=== PATIENT | male | born 2000 | race Caucasian/White ===

== ENCOUNTER → 2019-01-11 | Outpatient (CLI) | payer BC | LOC: COL.RAD 13:15 | DX: N45.1 Epididymitis (principal); Z90.79 Acquired absence of other genital organ(s) ==

== ENCOUNTER 2021-08-24 17:12 | Observation (INO) | payer BC ==
[~2021-08-24] VITALS: Ht 182.9 cm; Wt 92.2 kg
[2021-08-24 17:46] LABS: COLLECTION METHOD CLEAN CATCH
[2021-08-24 17:50] LABS: BASO % 0.3 % (0.0-2.0); EOS # 0.1 K/mm3 (0.0-0.7); EOS % 0.4 % (0-4.0); GRAN # 10.6 K/mm3 (1.4-6.5); GRAN % 77.7 % (42.2-75.2); HEMATOCRIT 45.1 % (42.0-52.0); HEMOGLOBIN 16.9 g/dl (13.5-18.0); MEAN CELL VOLUME 85 fl (80.0-100.0); MEAN CORPUSCULAR HEMOGLOBIN 32 pg (27.0-31.0); MEAN CORPUSCULAR HGB CONC 38 g/dl (33.0-37.0); MEAN PLATELET VOLUME 8.5 fl (7.4-10.4); MONO # 0.8 K/mm3 (0.1-0.6); MONO % 6.2 % (1.7-9.3); PLATELET COUNT 259 K/mm3 (130-400); RED BLOOD COUNT 5.28 M/mm3 (4.20-5.60); REDCELL DISTRIBUTION WIDTH-CV 11.8 % (11.5-14.5)
[2021-08-24 17:55] LABS: PH 8 (5-8); SQUAMOUS EPITHELIAL None Seen /hpf (0-10); URINE APPEARANCE Cloudy (CLEAR/HAZY); URINE BACTERIA None Seen (NONE SEEN); URINE BILIRUBIN Negative (NEGATIVE); URINE BLOOD Negative (NEGATIVE); URINE COLOR Yellow (YELLOW); URINE GLUCOSE Negative (NEGATIVE); URINE KETONE Negative (NEGATIVE); URINE LEUKOCYTE ESTERASE Negative (NEGATIVE); URINE NITRATE Negative (NEGATIVE); URINE PROTEIN(semi-quant) Negative (NEGATIVE); URINE RBC 0-2 /hpf (0-2); URINE UROBILINOGEN Negative (NEGATIVE)
[2021-08-24 18:08] LABS: ALBUMIN 4.6 gm/dL (3.5-5.0); BILIRUBIN,TOTAL 0.7 mg/dL (0.2-1.2); CREATININE, serum 1.44 mg/dL (0.72-1.25); POTASSIUM 3.9 mmol/L (3.5-4.5); TOTAL PROTEIN 8.2 gm/dL (6.2-8.1)
[2021-08-24] MEDS ORDERED: COMPLETE MULTI1 TAB PO (20:33)
[2021-08-24 20:52] VITALS: BP 155/84; PULSE 88; TEMP 98.8
[2021-08-25] VITALS (9 sets, daily range): BP systolic 115–1239; BP diastolic 53–80; PULSE 70–100; TEMP 97.6–98.5
--- NOTE | 2021-08-25 07:07 | NUR ---
Pt admitted to room 348 last evening @2014 for RLQ PAIN, IVF infusing per PIV @125cc/hr, pt c/o slight pain on admit, able to move self from w/c to bed, up ad lorena in room, oriented to room and plan of care. Dr Hines planning on surgery in am.
--- NOTE | 2021-08-25 08:19 | NUR ---
PT ASSESSED. PARENTS AT BEDSIDE. NO COMPLAINTS OF NAUSEA. DOES COMPLAIN OF PAIN. MEDICATION GIVEN PER ORDERS. CONSENT FOR SURGERY SIGNED. NO OTHER QUESTIONS OR CONCERNS.
--- NOTE | 2021-08-25 08:20 | NUR ---
REPORT RECIEVED FROM PRIYA GRAMAJO. RESTING IN BED. COMPLAINS OF PAIN AND IS MEDICATED. NO THER CONCERNS AT THIS TIME CALL LIGHT WITHIN REACH
[2021-08-25] MEDS ORDERED: NORCO 325 MG-51 TAB PO (09:17)
--- NOTE | 2021-08-25 12:34 | NUR ---
PT DISCHARGED. PT ABLE TO VOID, EAT AND WALK WITHOUT NAUSEA/VOMITING/PAIN. INSTRUCTIONS GIVEN FOR LAP SITES WELL NEW MEDICATIONS. NO OTHER QUESTIONS OR CONCERNS. IV REMOVED.
== END 2021-08-25 12:35 | disposition home or self-care (01) ==
LOC: COL.ER 17:12 → SURG 18:52
PROVIDERS: Physician Assistant; ADMIT Surgery
DX: K35.80 Unspecified acute appendicitis (principal)
CPT/HCPCS: G0378; J0330; J0690; J0696; J1100; J1170; J1885; J2250; J2270; J2405; J2704; J3010; J7030; Q9967